=== PATIENT | female | born 1960 | race Caucasian/White ===

== ENCOUNTER 2018-03-12 17:24 | Outpatient (REF) | payer OTHER, SELFPAY ==
--- NOTE | 2018-03-12 15:15 | PAPFT_PTH ---
PATIENT: Madalyn Juan LOC: [facility] U#:[id number] AGE/SX: 57/F ROOM: RE03/12/[address]: Cuong Peralta MD : 1960 BED: DIS: 03/12/2018 SPEC #: [id number] RECD: 03/15/18 12:55 STATUS: YASIR REQ #: [id number] LEEROY: 03/12/18 15:[address]: Cuong Peralta [facility]PT[facility] Cytology RECD BY: Nancy Brown Tissues: 1 - CX/ENDOCX FOR PAP SMEARS Procedures: PAP THIN PREP/UVM Screening HPV DNA PROBE Comments: [id number]
== END 2018-03-12 17:44 ==
LOC: LBN 17:24
PROVIDERS: PCP Family Medicine; Visit Provider Family Medicine
DX: Z12.4 Encounter for screening for malignant neoplasm of cervix (principal); Z11.51 Encounter for screening for human papillomavirus (HPV)
CPT/HCPCS: 88142; 87624

== ENCOUNTER 2018-03-18 01:23 | Outpatient (CLI) | payer OTHER, SELFPAY ==
--- NOTE | 2018-03-18 09:27 | DI.US_ITS ---
SYMPTOM/DIAGNOSIS: POST MENOPAUSAL BLEEDING N95.0 PELVIC ULTRASOUND: Comparison is made with 02 Mar 2013. Transabdominal and transvaginal exams were performed. The uterus measures 7.5 x 3.1 cm and is retroverted. There is an 8 mm anterior fibroid. The endometrial stripe appears thickened measuring 14 mm. There is also increased vascularity and heterogeneity. The left ovary was not visualized. The right ovary is normal in size. There is no free fluid or hydronephrosis. IMPRESSION: Thickened endometrium was also irregular and hypervascular. Biopsy is recommended.
[2018-03-18 09:55] LABS: Abs Immature Grans 0.01 k/cumm (0.0-0.09); Absolute Basophil Count 0.03 k/cumm (0.0-0.2); Absolute Eosinophil Count 0.15 k/cumm (0.0-0.7); Absolute Lymphocyte Count 2.23 k/cumm (1.2-3.4); Absolute Monocyte Count 0.91 k/cumm (0.11-0.7); Absolute Neutrophil Count 3.66 k/cumm (1.2-6.7); Basophils % 0.4; Eosinophils % 2.1; HCT 42.9 % (36.0-46.0); HGB 14.2 g/dL (12.0-15.5); Immature Grans % 0.1; Lymphocytes % 31.9; Mean Corp. HGB Concentration 33.1 g/dL (32.0-36.0); Mean Corpuscular Hemoglobin 31.2 pg (27.0-33.0); Mean Corpuscular Volume 94.3 fL (80-95); Mean Platelet Volume 10.4 fL (8.0-11.0); Neutrophils % 52.5; Platelet Count 230 x1000/uL (130-400); RBC 4.55 m/cumm (4.00-5.20); RBC Distribution Width 12.7 % (11.7-14.6); White Blood Cell Count 6.99 k/cumm (4.4-10.8)
[2018-03-18 11:06] LABS: ALT 23 U/L (12-78); AST 16 U/L (15-37); Albumin 3.7 g/dL (3.4-5.0); Alkaline Phosphatase 69 U/L (46-116); Anion Gap 9.2 mmol/L (3-11); BUN 10 mg/dL (7-18); Bilirubin, Total 0.7 mg/dL (0.2-1.0); CO2 28.8 mmol/L (21.0-32.0); CREATININE 0.77 mg/dL (0.55-1.02); Calcium 9.5 mg/dL (8.5-10.1); Chloride 103 mmol/L (98-107); Cholesterol 227 mg/dL (50-200); Glucose 106 mg/dL (70-100); HDL Cholesterol 63 mg/dL (40-60); LDL CHOLESTEROL 140 mg/dL (<100); Sodium 141 mmol/L (136-145); TSH 1.14 uIU/mL (0.358-3.74); Total Protein 7.6 g/dL (6.4-8.2); Triglyceride 85 mg/dL (30-150)
== END 2018-03-18 01:43 ==
PROVIDERS: PCP Family Medicine; Visit Provider Family Medicine
DX: Z00.00 Encounter for general adult medical examination without abnormal findings (principal); N95.0 Postmenopausal bleeding; R93.89 Abnormal findings on diagnostic imaging of other specified body structures; I10 Essential (primary) hypertension; E78.5 Hyperlipidemia, unspecified
CPT/HCPCS: 36415; 80053; 80061; 83721; 85027; 76830; 76856; 84443; 85025

== ENCOUNTER 2018-03-22 10:24 | Outpatient (CLI) | payer OTHER, SELFPAY ==
[2018-03-22 10:56] LABS: Abs Immature Grans 0.01 k/cumm (0.0-0.09); Absolute Basophil Count 0.06 k/cumm (0.0-0.2); Absolute Eosinophil Count 0.14 k/cumm (0.0-0.7); Absolute Lymphocyte Count 2.18 k/cumm (1.2-3.4); Absolute Monocyte Count 0.98 k/cumm (0.11-0.7); Absolute Neutrophil Count 6.07 k/cumm (1.2-6.7); Basophils % 0.6; Eosinophils % 1.5; HCT 42.2 % (36.0-46.0); HGB 14.4 g/dL (12.0-15.5); Immature Grans % 0.1; Lymphocytes % 23.1; Mean Corp. HGB Concentration 34.1 g/dL (32.0-36.0); Mean Corpuscular Hemoglobin 31.9 pg (27.0-33.0); Mean Corpuscular Volume 93.4 fL (80-95); Mean Platelet Volume 10.4 fL (8.0-11.0); Monocytes % 10.4; Neutrophils % 64.3; Platelet Count 232 x1000/uL (130-400); RBC 4.52 m/cumm (4.00-5.20); RBC Distribution Width 12.5 % (11.7-14.6); White Blood Cell Count 9.44 k/cumm (4.4-10.8)
== END 2018-03-22 10:44 ==
PROVIDERS: PCP Family Medicine; Visit Provider Obstetrics & Gynecology
DX: N95.0 Postmenopausal bleeding (principal)
CPT/HCPCS: 36415; 85025

== ENCOUNTER 2018-03-24 08:29 | Day surgery (SDC) | payer OTHER, SELFPAY ==
[2018-03-24 08:57] VITALS: BP 155/88; PULSE 71; RESP 16; TEMP 36; O2SAT 98
[2018-03-24] MEDS: Lactated Ringers 1,000 ML 100 ML IV (09:24)
[2018-03-24] MEDS: Lidocaine 1% Pres-Free 5 ML VIAL (09:55)
--- NOTE | 2018-03-24 10:06 | ENDOMET_PTH ---
PATIENT: Madalyn Juan LOC: [facility] U#:[id number] AGE/SX: 57/F ROOM: RE03/24/[address]: Andrea Cheatham MD : 1960 BED: DIS: 03/24/2018 SPEC #: [id number] RECD: 03/24/18 12:43 STATUS: YASIR REQ #: [id number] LEEROY: 03/24/18 10:[address]: Andrea Cheatham DEPT: Surgical Specimen RECD BY: Nancy Brown ENTERED: 03/24/18 12:44 SP TYPE: Endomet OTHR DR: Cuong Peralta MD Tissues: 1 - ENDOMETRIUM BX/CURRETTE Procedures: GROSS AND MICRO LEVEL 4 Comments: [id number]
[2018-03-24 11:05] VITALS: BP 139/86; PULSE 67; RESP 20; TEMP 36.2; O2SAT 97
--- NOTE | 2018-03-24 12:09 | W.PM.OP ---
Date of service: 03/24/18 Time of Service: 12:09 Operative Note DATE OF PROCEDURE: 03/24/18 POST-OP DIAGNOSIS: same PROCEDURE: Hysteroscopy, D&C SURGEON: Andrea Cheatham ANESTHESIA: MAC ESTIMATED BLOOD LOSS: 0 PATHOLOGY: other (Endometrial curettings) COMPLICATIONS: None Patient was transported to: PACU Patient's condition: stable Findings: Thickened heterogeneous appearing endometrium with polypoid tissue. Procedure Description: The patient was taken to the operating room and after an adequate level of sedation. The patient was prepped and draped in the usual sterile manner. The bladder was straight cathed for approximately 10 cc of clear urine. A weighted speculum was placed in the vagina with good visualization of the cervix. A single-tooth tenaculum was placed on the anterior lip of the cervix and a paracervical block with 10 cc of 1% plain lidocaine solution was instilled. The cervix was gently dilated with Vargas dilators. A 5 mm 30 degree hysteroscope with normal saline distention media was advanced to the cervix with good visualization of the endometrial cavity. The endometrium was thickened and heterogeneous in appearance. Some structures appeared polypoid. The hysteroscope was removed. A sharp curettage was performed with moderate return of tissue. This was submitted to pathology. A second pass with the hysteroscope was made and complete removal of abnormal appearing tissue was confirmed. All instrument tissue was removed. Excellent hemostasis noted. Sponge, lap and instrument counts were correct at the conclusion of the procedure and the patient was transferred to PACU in stable condition.
== END 2018-03-24 12:35 | disposition home or self-care (01) ==
LOC: SUR 08:29
PROVIDERS: PCP Family Medicine; Visit Provider Obstetrics & Gynecology
PROC: 0UDB8ZZ Extraction of Endometrium, Via Natural or Artificial Opening Endoscopic (ICD-10-PCS; CPT 58558; principal; 2018-03-24 09:00)
DX: C54.1 Malignant neoplasm of endometrium (principal); N95.0 Postmenopausal bleeding
CPT/HCPCS: 58558; 88305; J1100; J1885; J2250; J2405; J3010

== ENCOUNTER 2019-04-01 03:48 | Outpatient (CLI) | payer OTHER, SELFPAY ==
--- NOTE | 2019-04-01 09:45 | DI.RAD_ITS ---
EXAM: XR CHEST 2V PA LATERAL INDICATION: Chronic cough and patient with endometrial cancer,c54.1. COMPARISON: CHEST 2 VIEWS PA,LAT from 09/19/2016 TECHNIQUE: 2D digital imaging was performed. FINDINGS: Heart size appears stable. The pulmonary vasculature are within normal limits. The lungs are clear. No pleural effusion or pneumothorax is identified. Age-appropriate degenerative changes are seen i n the spine. IMPRESSION: No acute pulmonary process.
== END 2019-04-01 04:08 ==
PROVIDERS: PCP Family Medicine; Visit Provider Family Medicine
DX: R05 Cough (principal); C54.1 Malignant neoplasm of endometrium
CPT/HCPCS: 71046

== ENCOUNTER 2019-04-01 09:56 | Outpatient (CLI) | payer OTHER, SELFPAY ==
[2019-04-01 10:58] LABS: Absolute Basophil Count 0.04 k/cumm (0.0-0.2); Absolute Eosinophil Count 0.13 k/cumm (0.0-0.7); Absolute Lymphocyte Count 1.11 k/cumm (1.2-3.4); Absolute Monocyte Count 0.51 k/cumm (0.11-0.7); Absolute Neutrophil Count 2.67 k/cumm (1.2-6.7); Basophils % 0.9; Eosinophils % 2.9; HCT 40.8 % (36.0-46.0); HGB 13.5 g/dL (12.0-15.5); Lymphocytes % 24.9; Mean Corp. HGB Concentration 33.1 g/dL (32.0-36.0); Mean Corpuscular Volume 93.8 fL (80-95); Mean Platelet Volume 9.8 fL (8.0-11.0); Monocytes % 11.4; Neutrophils % 59.9; Platelet Count 266 x1000/uL (130-400); RBC 4.35 m/cumm (4.00-5.20); RBC Distribution Width 12.5 % (11.7-14.6); White Blood Cell Count 4.46 k/cumm (4.4-10.8)
[2019-04-01 11:59] LABS: ALT 22 U/L (14-59); AST 18 U/L (15-37); Albumin 3.7 g/dL (3.4-5.0); Alkaline Phosphatase 83 U/L (46-116); Anion Gap 7.4 mmol/L (3-11); BUN 13 mg/dL (7-18); Bilirubin, Total 0.5 mg/dL (0.2-1.0); CO2 29.6 mmol/L (21.0-32.0); Calcium 9.4 mg/dL (8.5-10.1); Calculated LDL 140 mg/dL (<100); Chloride 106 mmol/L (98-107); Cholesterol 210 mg/dL (<200); Glucose 102 mg/dL (74-106); HDL Cholesterol 60 mg/dL (40-60); Potassium 4.7 mmol/L (3.5-5.1); Sodium 143 mmol/L (136-145); Total Protein 7.1 g/dL (6.4-8.2); Triglyceride 51 mg/dL (<150)
[2019-04-01 12:36] LABS: Hemoglobin A1C 5.7 % (3.8-5.6)
== END 2019-04-01 10:16 ==
PROVIDERS: PCP Family Medicine; Visit Provider Family Medicine
DX: Z00.00 Encounter for general adult medical examination without abnormal findings (principal); E78.5 Hyperlipidemia, unspecified; I10 Essential (primary) hypertension
CPT/HCPCS: 36415; 80053; 80061; 86900; 86901; 83036; 85025

== ENCOUNTER 2019-10-18 15:50 | Outpatient (REF) | payer OTHER, SELFPAY ==
[2019-10-18 15:10] LABS: Calculated LDL 160 mg/dL (<100); Cholesterol 254 mg/dL (<200); HDL Cholesterol 65 mg/dL (40-60); Triglyceride 145 mg/dL (<150)
== END 2019-10-18 16:10 ==
LOC: LBN 15:50
PROVIDERS: PCP Family Medicine; Visit Provider Family Medicine
DX: E78.5 Hyperlipidemia, unspecified (principal); I10 Essential (primary) hypertension
CPT/HCPCS: 80061

== ENCOUNTER 2020-06-26 03:24 | Outpatient (CLI) | payer OTHER, SELFPAY ==
[2020-06-26 12:40] LABS: Calculated LDL 145 mg/dL (<100); Cholesterol 236 mg/dL (<200); HDL Cholesterol 61 mg/dL (40-60); Triglyceride 150 mg/dL (<150)
[2020-06-26 12:44] LABS: Hemoglobin A1C 5.8 % (<5.7)
== END 2020-06-26 03:25 | disposition home or self-care (01) ==
LOC: LOS 03:24
PROVIDERS: PCP Family Medicine; Visit Provider Physician Assistant
DX: E78.5 Hyperlipidemia, unspecified (principal); R73.09 Other abnormal glucose
CPT/HCPCS: 36415; 80061; 83036

== ENCOUNTER 2020-12-21 10:19 | Outpatient (CLI) | payer OTHER, SELFPAY ==
[2020-12-21 13:11] LABS: CREATININE 0.8 mg/dL (0.55-1.02); Calculated LDL 138 mg/dL (<100); Cholesterol 220 mg/dL (<200); HDL Cholesterol 59 mg/dL (40-60); Potassium 4.1 mmol/L (3.5-5.1); Triglyceride 116 mg/dL (<150)
== END 2020-12-21 10:20 | disposition home or self-care (01) ==
LOC: LOS 10:19
PROVIDERS: PCP Nurse Practitioner; Visit Provider Nurse Practitioner
DX: I10 Essential (primary) hypertension (principal); E78.5 Hyperlipidemia, unspecified
CPT/HCPCS: 36415; 80061; 82565; 84132

== ENCOUNTER 2021-07-19 01:12 | Outpatient (CLI) | payer OTHER, SELFPAY ==
[2021-07-19 13:11] LABS: Hemoglobin A1C 6.1 % (<5.7)
[2021-07-19 13:21] LABS: Anion Gap 10.3 mmol/L (3-11); BUN 16 mg/dL (7-18); CO2 32.7 mmol/L (21.0-32.0); CREATININE 0.8 mg/dL (0.55-1.02); Calcium 9.4 mg/dL (8.5-10.1); Calculated LDL 140 mg/dL (<100); Chloride 96 mmol/L (98-107); Cholesterol 218 mg/dL (<200); Glucose 105 mg/dL (74-106); HDL Cholesterol 54 mg/dL (40-60); Potassium 3.1 mmol/L (3.5-5.1); Sodium 139 mmol/L (136-145); Triglyceride 120 mg/dL (<150)
== END 2021-07-19 01:13 | disposition home or self-care (01) ==
LOC: LOS 01:12
PROVIDERS: PCP Nurse Practitioner; Visit Provider Nurse Practitioner
DX: I10 Essential (primary) hypertension (principal); E78.5 Hyperlipidemia, unspecified; R73.03 Prediabetes
CPT/HCPCS: 36415; 80048; 80061; 83036

== ENCOUNTER 2021-08-02 01:41 | Outpatient (CLI) | payer OTHER, SELFPAY ==
[2021-08-02 09:01] LABS: Potassium 2.8 mmol/L (3.5-5.1)
== END 2021-08-02 01:42 | disposition home or self-care (01) ==
LOC: LBO 01:42
PROVIDERS: PCP Nurse Practitioner; Visit Provider Nurse Practitioner
DX: I10 Essential (primary) hypertension (principal)
CPT/HCPCS: 36415; 84132

== ENCOUNTER 2021-08-05 10:09 | Outpatient (CLI) | payer OTHER, SELFPAY ==
[2021-08-05 10:52] LABS: Potassium 3.1 mmol/L (3.5-5.1)
== END 2021-08-05 10:10 | disposition home or self-care (01) ==
LOC: LBO 10:12
PROVIDERS: PCP Nurse Practitioner; Visit Provider Nurse Practitioner
DX: E87.6 Hypokalemia (principal)
CPT/HCPCS: 36415; 84132

== ENCOUNTER 2021-08-30 01:36 | Outpatient (CLI) | payer OTHER, SELFPAY | END 2021-08-30 01:37 | disposition home or self-care (01) | LOC: LBO 01:36 | PROVIDERS: PCP Nurse Practitioner; Visit Provider Nurse Practitioner | DX: E87.6 Hypokalemia (principal) | CPT/HCPCS: 36415; 84132 ==

== ENCOUNTER 2021-09-13 01:54 | Outpatient (CLI) | payer OTHER, SELFPAY ==
[2021-09-13 09:22] LABS: Potassium 2.7 mmol/L (3.5-5.1)
== END 2021-09-13 01:55 | disposition home or self-care (01) ==
LOC: LBO 01:54
PROVIDERS: PCP Nurse Practitioner; Visit Provider Nurse Practitioner
DX: E87.6 Hypokalemia (principal)
CPT/HCPCS: 36415; 84132

== ENCOUNTER 2021-09-16 09:32 | Outpatient (CLI) | payer OTHER, SELFPAY ==
[2021-09-16 10:06] LABS: Potassium 3.3 mmol/L (3.5-5.1)
== END 2021-09-16 09:33 | disposition home or self-care (01) ==
LOC: LBO 09:33
PROVIDERS: PCP Nurse Practitioner; Visit Provider Nurse Practitioner
DX: E87.6 Hypokalemia (principal)
CPT/HCPCS: 36415; 84132

== ENCOUNTER 2021-09-27 01:16 | Outpatient (CLI) | payer OTHER, SELFPAY ==
[2021-09-27 11:40] LABS: Potassium 3.8 mmol/L (3.5-5.1)
== END 2021-09-27 01:17 | disposition home or self-care (01) ==
LOC: LBO 01:16
PROVIDERS: PCP Nurse Practitioner; Visit Provider Nurse Practitioner
DX: E87.6 Hypokalemia (principal)
CPT/HCPCS: 36415; 84132

== ENCOUNTER 2022-01-24 01:38 | Outpatient (CLI) | payer OTHER, SELFPAY ==
[2022-01-24 08:27] LABS: Anion Gap 7.2 mmol/L (3-11); BUN 13 mg/dL (7-18); CO2 29.8 mmol/L (21.0-32.0); CREATININE 0.8 mg/dL (0.55-1.02); Calcium 9.2 mg/dL (8.5-10.1); Chloride 100 mmol/L (98-107); Estimated GFR 84.82 (mL/min/1.73m2); Glucose 115 mg/dL (74-106); Potassium 3.5 mmol/L (3.5-5.1); Sodium 137 mmol/L (136-145)
== END 2022-01-24 01:39 | disposition home or self-care (01) ==
LOC: LBO 01:38
PROVIDERS: PCP Nurse Practitioner Family; Visit Provider Nurse Practitioner Family
DX: E66.9 Obesity, unspecified (principal); E87.6 Hypokalemia; I10 Essential (primary) hypertension
CPT/HCPCS: 36415; 80048

== ENCOUNTER 2022-04-01 07:23 | Emergency (ER) | payer OTHER, SELFPAY ==
[2022-04-01 07:33] VITALS: BP 145/84; PULSE 70; TEMP 36.7; O2SAT 99
--- NOTE | 2022-04-01 09:15 | DI.CT_ITS ---
Exam(s) CT HEAD WO EXAM: CT HEAD WO CLINICAL HISTORY: Head strike okay. TECHNIQUE: Imaging Protocol: Axial computed tomography images with coronal and sagittal reformatted images were created and reviewed COMPARISON: No exams were available for comparison FINDINGS: There are no skull fractures. There is no fluid in the visualized paranasal sinuses. There is no evidence of intracranial hemorrhage, mass effect, or shift of midline structures. There are no extra-axial fluid collections. The ventricles are not enlarged or shifted and there is no blo od within the ventricular system nor within the basal cisterns. IMPRESSION: No acute intracranial findings on this noninfused CT scan of the brain. RADIATION DOSE DELIVERED: 769.8mGy.cm Total DLP DATA REPOSITORY: All CT scans at this facility are submitted to the National Radiology Data Registry (NRDR) Dose Index Registry (DIR) with the [employer] (ACR). RADIATION OPTIMIZATION: All CT scans at this facility use at least one of these dose optimization te chniques: automated exposure control; mA and/or kV adjustment per patient size (includes targeted exa ms where dose is matched to clinical indication); or iterative reconstruction.
--- NOTE | 2022-04-01 09:15 | DI.RAD_ITS ---
Exam(s) XR ELBOW RT COMPLETE EXAM: XR ELBOW RT COMPLETE CLINICAL HISTORY: Right elbow pain. TECHNIQUE: 2D digital imaging was performed. COMPARISON: No exams were available for comparison FINDINGS: 3 views No evidence of acute fracture or joint effusion and there is no swelling of the olecranon bursa. How ever, there osteophytic densities adjacent to the lateral epicondyle. Most probably consistent with epicondylitis. These are corticated and probably within the common extensor tendon. Similar finding s are not seen on the medial aspect of the elbow. No degenerative changes nor loose intra-articular bodies. Radial head and neck are unremarkable. IMPRESSION: Findings at and adjacent to the lateral epicondyle consistent with probable lateral epicondylitis/ten nis elbow. Correlation with site of tenderness recommended. DATA REPOSITORY: RADIATION DOSE DELIVERED:
--- NOTE | 2022-04-01 11:08 | ED.GENADUL_ITS ---
Discharge Plan Disposition Patient Disposition: Home Discharge Details Clinical Impression: Head injury Primary Care Provider: Negin Thompson ED Provider: [facility] Home Meds and New Rx's Prescriptions: Continued fluticasone propionate 50 mcg/actuation spray,suspension 2 spray NS DAILY PRN (Reason: allergy symptoms) Qty: 54.6 3RF meclizine 25 mg tablet 25 mg PO TID Qty: 30 1RF metoprolol tartrate 50 mg tablet 50 mg PO BID Qty: 180 4RF Rx Instructions: 1 TAB BID chlorthalidone 25 mg tablet 25 mg PO DAILY Qty: 90 3RF potassium chloride 20 mEq tablet extended release 20 meq PO DAILY Qty: 90 3RF magnesium oxide 400 mg (241.3 mg magnesium) tablet 400 mg PO DAILY valsartan 320 mg tablet 320 mg PO DAILY Qty: 90 3RF multivitamin [Daily Multi-Vitamin] 1 EACH tablet 1 ea PO DAILY PRN omeprazole 40 mg capsule,delayed release(DR/EC) 40 mg PO HS Qty: 30 11RF acetaminophen 500 mg Tablet 1,000 mg PO Q6H PRN Discharge Instructions Instructions: Head Injury (ED) Additional Instructions: X-ray and CT imaging unremarkable for any obvious emergent process. Over -the-counter Tylenol as directed for discomfort. Cool compresses every 2 hours for 20 minutes. Brain rest until symptoms have resolved. Work note for the rest of the week has been provided. Please watch for new or worsening symptoms and return to the ER for any concerns. Lastly, please contact either your PCP or Workmen's Comp. provider later today or tomorrow to discuss your ER visit and need for reevaluation as an outpatient Stand Alone Forms: Work Release Medical Decision Making 61-year-old female, not anticoagulated, tetanus status up-to-date, presents to the ER after mechanical slip and fall while at work striking the back of her head. Denies LOC but reports headache and left-sided neck pain. She did not realize that she does have a small abrasion to her right elbow as well. Prior to my evaluation, CT brain and right elbow x-ray obtained per protocol. Clinically patient appears well, nontoxic, neurologically intact. CT imaging of brain unremarkable. X-ray reveals no acute fracture or joint effusion. Patient remains neurologically intact. Given her headache, mild nausea, likely mild concussion. Patient requesting a work note for the rest of the week and we discussed brain rest. Standard discharge and return precautions were provided. Patient understands, is agreeable to this plan, and has no additional questions or concerns upon discharge. This documentation was generated using Try[employer] system, please disregard any oddities of phrase or misspellings. Medical Records Medical records reviewed: Yes I reviewed the patient's medical records. Imaging Data Radiologic Study: Attestation: I personally reviewed and interpreted this imaging study as follows: Imaging: X-Ray Radiologist's impression: Exam(s) XR ELBOW RT COMPLETE EXAM: XR ELBOW RT COMPLETE CLINICAL HISTORY: Right elbow pain. TECHNIQUE: 2D digital imaging was performed. COMPARISON: No exams were available for comparison FINDINGS: 3 views No evidence of acute fracture or joint effusion and there is no swelling of the olecranon bursa. However, there osteophytic densities adjacent to the lateral epicondyle. Most probably consistent with epicondylitis. These are corticated and probably within the common extensor tendon. Similar findings are not seen on the medial aspect of the elbow. No degenerative changes nor loose intra-articular bodies. Radial head and neck are unremarkable. IMPRESSION: Findings at and adjacent to the lateral epicondyle consistent with probable lateral epicondylitis/tennis elbow. Correlation with site of tenderness recommended. Radiologic Study #2: Attestation: I personally reviewed and interpreted this imaging study as follows: Imaging: CT Scan Radiologist's impression: Exam(s) CT HEAD WO EXAM: CT HEAD WO CLINICAL HISTORY: Head strike okay. TECHNIQUE: Imaging Protocol: Axial computed tomography images with coronal and sagittal reformatted images were created and reviewed COMPARISON: No exams were available for comparison FINDINGS: There are no skull fractures. There is no fluid in the visualized paranasal sinuses. There is no evidence of intracranial hemorrhage, mass effect, or shift of midline structures. There are no extra-axial fluid collections. The ventricles are not enlarged or shifted and there is no blood within the ventricular system nor within the basal cisterns. IMPRESSION: No acute intracranial findings on this noninfused CT scan of the brain. HPI General Mode of arrival: ambulatory . Date/Time Provider Initiated Documentation: 04/01/22 09:22 . Limitations to Documentation: no limitations . Information obtained by: patient . History of Present Illness 61 year old F presents to the emergency department with the chief complaint of fall/head injury, described as moderate, with intensity rated at 6. Quality is described as aching, and is localized to the head. Patient reports no radiation. Patient started experiencing this hour(s) (3) and it has been constant. No relieving factors improve symptom(s), No exacerbating factors reported . Patient notes nausea/vomiting (nausea) and other (R elbow abrsion). Patient did receive the following treatments prior to arrival, none Related Data Home Medications Medication Instructions Recorded Confirmed multivitamin (Daily Multi-Vitamin 1 ea PO DAILY PRN 06/18/12 04/01/22 tablet) acetaminophen 500 mg tablet 1,000 mg PO Q6H PRN 03/23/18 04/01/22 fluticasone propionate 50 2 spray NS DAILY PRN allergy 03/16/19 04/01/22 mcg/actuation nasal symptoms #54.6 mL spray,suspension magnesium oxide 400 mg (241.3 mg 400 mg PO DAILY 12/21/20 04/01/22 magnesium) tablet omeprazole 40 mg capsule,delayed 40 mg PO HS #30 caps 06/04/21 04/01/22 release meclizine 25 mg tablet 25 mg PO TID #30 tabs 07/12/21 04/01/22 metoprolol tartrate 50 mg tablet 50 mg PO BID #180 tabs 07/12/21 04/01/22 valsartan 320 mg tablet 320 mg PO DAILY #90 tabs 02/14/22 04/01/22 chlorthalidone 25 mg tablet 25 mg PO DAILY #90 tabs 03/17/22 04/01/22 potassium chloride 20 mEq 20 meq PO DAILY #90 tabs 03/17/22 04/01/22 tablet,extended release Previous Rx's Medication Instructions Recorded fluticasone propionate 50 2 spray NS DAILY PRN allergy 03/16/19 mcg/actuation nasal symptoms #54.6 mL spray,suspension omeprazole 40 mg capsule,delayed 40 mg PO HS #30 caps 06/04/21 release meclizine 25 mg tablet 25 mg PO TID #30 tabs 07/12/21 metoprolol tartrate 50 mg tablet 50 mg PO BID #180 tabs 07/12/21 valsartan 320 mg tablet 320 mg PO DAILY #90 tabs 02/14/22 chlorthalidone 25 mg tablet 25 mg PO DAILY #90 tabs 03/17/22 potassium chloride 20 mEq 20 meq PO DAILY #90 tabs 03/17/22 tablet,extended release Allergies Allergy/AdvReac Type Severity Reaction Status Date / Time gluten Allergy Unknown Verified 04/01/22 07:40 codeine AdvReac Severe dizzieness, Verified 04/01/22 07:40 vomitting influenza virus vaccine, AdvReac Severe dizzieness, Verified 04/01/22 07:40 specific nauseated ibuprofen AdvReac Intermediate Abdominal Verified 04/01/22 07:40 pain, nausea, per pt amlodipine AdvReac swelling Verified 04/01/22 07:40 General Stated Complaint: HeadInjury CRISTIAN: 4 Review of Systems Constitutional Constitutional: Denies fatigue, Denies fever(s), Reports headache(s) and Denies weakness Eyes Eyes: Denies change in vision ENT Ears, Nose, Mouth, and Throat: Reports headache(s) and Reports neck pain (Mild left-sided) Cardiovascular Cardiovascular: Denies chest pain and Denies dyspnea Respiratory Respiratory: Denies dyspnea Gastrointestinal Gastrointestinal: Denies abdominal pain, Reports nausea and Denies vomiting Musculoskeletal Musculoskeletal: Reports back pain, Reports neck pain (Mild left-sided), Denies numbness and Denies tingling Integumentary/Breasts Skin/Breast: Denies rash Neurologic Neurologic: Reports headache(s), Denies numbness, Denies tingling and Denies weakness Endocrine Endocrine: Denies fatigue Hematologic/Lymphatic Hematologic/Lymphatic: Denies easy bleeding and Denies easy bruising PFSH All Active Problems (Updated 04/01/22 @ 11:27 by LA Streeter) Head injury (Acute) Obesity (Chronic) Skin lesion (Acute) IBS (irritable bowel syndrome) (Chronic) Hypokalemia (Acute) Prediabetes (Acute) Endometrial adenocarcinoma (Acute) 2020- [facility] 08/2020- Urological lymphocyst compressing urethra removed Essential hypertension (Acute 12/30/12) Gastro-esophageal reflux (Acute 07/22/13) 04/30 [facility] (Dr Tai) EGD neg Hyperlipidemia (Acute) Urge incontinence of urine (Acute) Varicose veins of lower extremity (Acute) h/o superficial phlebitis (Dr Ferraro laser and surgery 2008) Medical History Chest pain (01/15/07) echo-normal; EF 55-60%; stress test-equivocal 10/28/16 echo-normal; EF 55-60% Nevus, non-neoplastic left inner leg; BX-atypia PAC (premature atrial contraction) (02/13/17) Pedal edema chronic R>L Xerosis cutis (02/13/17) Surgical History Cholecystectomy (~07/1986) History of bilateral tubal ligation S/P hysterectomy Spincterotomy vein stripping (~04/2008) Family History Mother Essential hypertension Hyperlipidemia Father , 71 Essential hypertension Heart disease Stroke Alcohol abuse Prostate cancer Sister Asthma Maternal Grandfather , 84 Essential hypertension Heart disease Paternal Grandfather , 75 Essential hypertension Heart disease Neoplasm Stroke Alcohol abuse Maternal Grandmother , 82 Essential hypertension Heart disease Breast cancer Paternal Grandmother , 78 Essential hypertension Heart disease Hyperlipidemia Stroke Son Substance abuse Depression Mental disorder Depression Daughter No problems noted. Brother , age 19 No problems noted. Social History Smoking/Tobacco Use Status: Never Smoking risk assessment performed?: Yes Alcohol Intake: never Drug use: Never Substance use type: does not use Caregiver/Support person: No Household members: spouse Housing: house Communication Needs: None Do you need help understanding health information?: Never Pets and animals: Yes (2 beagle pups) Pets and animals: dog(s) Sexually active: No Do you think of yourself as: straight/heterosexual Current gender identity: female What is your relationship status?: How often do you talk on the phone with friends or family?: twice per week How often do you get together with friends or relatives?: once per week How often do you attend sikhism or spiritism services?: 1-3 times per year Do you belong to any clubs or organized social groups?: no Panel score (0-1 are the most socially isolated patients): 2 What type of physical activity do you participate in: walking and other Details: Treadmill Duration: 15-30 minutes/day Frequency: 3-4 times per week Kae/Methodist: Buddhism Special kae needs: No Seatbelt use: always Drive intox or ride w/intox rickshaw driver: No Female Reproductive History Menstrual control method: permanent sterilization History History 4 Para 2 Hx # Term Pregnancies Multiple births Hx # Pregnancies Ectopic pregnancies AB induced Hx Number of Living Children 2 AB spontaneous 2 Exam Const General: cooperative, healthy appearing, comfortable and no acute distress Orientation: alert, awake and oriented x3 HENMT Head: normal to inspection, no palpable skull fracture and normocephalic Head images: 1. Tenderness, no crepitus or swelling. No ecchymosis. Skin intact. Ears: external ears normal, TM's normal bilaterally and EAC's normal General nose exam: external nose normal Face and sinus: normal facial exam Mouth: moist mucous membranes Throat: posterior oropharynx normal Eyes General: appearance normal, both eyes and all related structures Alignment and Position: alignment normal Periorbital: periorbital findings normal Eyelids: eyelids normal Conjunctivae: conjunctivae normal Sclera: sclerae normal Cornea: corneas normal Pupils: PERRL EOM: EOM intact bilaterally Direct ophthalmoscopy: normal light reflex Neck Neck: normal visual inspection, full ROM, no meningeal signs, trachea midline, supple and tender (Mild left paravertebral and SCM. No midline point tenderness) Resp Effort & Inspection: normal respiratory effort and able to speak in complete sentences Auscultation: clear to auscultation bilaterally Cardio Rate: regular rate Rhythm: regular rhythm GI Palpation: soft and nontender Back/Spine/Pelvis Back: no CVA tenderness and back tenderness (Diffuse mild lumbar, no ecchymosis or midline point tenderness) Skin General skin exam: no rashes or lesions noted Neuro General: patient alert, patient awake, patient oriented x3, moves all ex tremities and no focal motor deficits Cranial Nerves: CN's II-XI intact bilaterally Cognition: normal cognition Speech: speech normal Gait: normal gait Motor: muscle tone normal throughout Sensory Exam: no sensory deficits noted Extrem General: full ROM and capillary refill normal Elbow/forearm/wrist images: 1. Abrasion Psych Appearance: grossly normal Mental Status: mental status grossly normal Course Vital Signs Vital signs: Vital Signs Temperature 36.7 C 04/01/22 07:33 Pulse 70 04/01/22 07:33 Blood Pressure 145/84 H 04/01/22 07:33 Pulse Oximetry 99 04/01/22 07:33 Temperature 36.7 C 04/01/22 07:33 Temperature Source Tympanic 04/01/22 07:33 Pulse 70 04/01/22 07:33 Respiratory Effort Normal 04/01/22 07:44 Respiratory Depth Normal 04/01/22 07:44 Respiratory Pattern Normal 04/01/22 07:44 Blood Pressure 145/84 H 04/01/22 07:33 Blood Pressure Position Sitting 04/01/22 07:33 Pulse Oximetry 99 04/01/22 07:33 Oxygen Delivery Method Room Air 04/01/22 07:33 Oxygen Flow Rate 0 04/01/22 07:33 Pain Level 4 04/01/22 07:44
[2022-04-01 11:39] VITALS: BP 122/74; PULSE 72; RESP 18; O2SAT 97
== END 2022-04-01 11:39 | disposition home or self-care (01) ==
PROVIDERS: Emergency Provider Physician Assistant; PCP Nurse Practitioner Family
DX: S09.90XA Unspecified injury of head, initial encounter (principal); S50.311A Abrasion of right elbow, initial encounter; I10 Essential (primary) hypertension; W01.0XXA Fall on same level from slipping, tripping and stumbling without subsequent striking against object, initial encounter; Y99.0 Civilian activity done for income or pay
CPT/HCPCS: 99284; 70450; 73080; 99282

== ENCOUNTER 2022-09-09 09:15 | Outpatient (CLI) | payer OTHER, SELFPAY ==
[2022-09-09 12:34] LABS: HCT 42.1 % (36.0-46.0); MCH 31.3 pg (27.0-33.0); MCHC 33.3 % (32.0-36.0); MCV 94 fL (80-95); MPV 10.2 fL (8.0-11.0); Platelet Count 278 10^3/uL (130-400); RBC 4.47 10^6/uL (3.93-5.22); RDW 12.3 % (11.7-14.6); RDW-SD 42.7 fL; WBC 6.37 10^3/uL (4.4-10.8)
[2022-09-09 12:58] LABS: Hemoglobin A1C 5.7 % (<5.7)
[2022-09-09 13:07] LABS: Anion Gap 6.1 mmol/L (3-11); BUN 17 mg/dL (7-18); CO2 32.9 mmol/L (21.0-32.0); CREATININE 0.9 mg/dL (0.55-1.02); Calcium 9.6 mg/dL (8.5-10.1); Calculated LDL 127 mg/dL (<100); Chloride 100 mmol/L (98-107); Cholesterol 211 mg/dL (<200); Estimated GFR 73.19 (mL/min/1.73m2); Glucose 109 mg/dL (74-106); HDL Cholesterol 61 mg/dL (40-60); Potassium 3.6 mmol/L (3.5-5.1); Sodium 139 mmol/L (136-145); Triglyceride 116 mg/dL (<150)
== END 2022-09-09 09:16 | disposition home or self-care (01) ==
LOC: LOS 09:16
PROVIDERS: PCP Nurse Practitioner Family; Referring Provider Nurse Practitioner Family; Visit Provider Nurse Practitioner Family
DX: E87.6 Hypokalemia; I10 Essential (primary) hypertension; K21.9 Gastro-esophageal reflux disease without esophagitis; R05.9 Cough, unspecified; R73.03 Prediabetes
CPT/HCPCS: 36415; 80048; 80061; 85027; 83036

== ENCOUNTER 2023-09-14 09:08 | Outpatient (CLI) | payer OTHER, SELFPAY ==
[2023-09-14 13:57] LABS: Anion Gap 6.4 mmol/L (3-11); BUN 16 mg/dL (7-18); CO2 33.6 mmol/L (21.0-32.0); CREATININE 0.9 mg/dL (0.55-1.02); Calcium 9.9 mg/dL (8.5-10.1); Calculated LDL 133 mg/dL (<100); Chloride 100 mmol/L (98-107); Cholesterol 223 mg/dL (<200); Estimated GFR 72.73 (mL/min/1.73m2); Glucose 107 mg/dL (74-106); HDL Cholesterol 65 mg/dL (40-60); Potassium 4.4 mmol/L (3.5-5.1); Sodium 140 mmol/L (136-145); Triglyceride 128 mg/dL (<150)
[2023-09-14 14:04] LABS: Hemoglobin A1C 5.9 % (<5.7)
== END 2023-09-14 09:09 | disposition home or self-care (01) ==
LOC: LOS 09:09
PROVIDERS: PCP Nurse Practitioner Family; Referring Provider Nurse Practitioner Family; Visit Provider Nurse Practitioner Family
DX: I10 Essential (primary) hypertension (principal); E78.5 Hyperlipidemia, unspecified; R73.03 Prediabetes; E04.1 Nontoxic single thyroid nodule
CPT/HCPCS: 36415; 80048; 80061; 83036

== ENCOUNTER 2024-09-27 09:28 | Outpatient (CLI) | payer BC, SELFPAY ==
[2024-09-27 13:37] LABS: ALT 27 U/L (14-59); AST 19 U/L (15-37); Albumin 3.9 g/dL (3.4-5.0); Alkaline Phosphatase 70 U/L (46-116); Anion Gap 4.4 mmol/L (3-11); BUN 15 mg/dL (7-18); Bilirubin, Total 0.6 mg/dL (0.2-1.0); CO2 33.6 mmol/L (21.0-32.0); Calcium 9.6 mg/dL (8.5-10.1); Calculated LDL 106 mg/dL (<100); Chloride 100 mmol/L (98-107); Cholesterol 194 mg/dL (<200); Estimated GFR 97.72 (mL/min/1.73m2); Glucose 103 mg/dL (74-106); HDL Cholesterol 67 mg/dL (>or=50); Potassium 3.7 mmol/L (3.5-5.1); Sodium 138 mmol/L (136-145); TSH (W/Ref FT4) 2.55 uIU/mL (0.36-3.74); Total Protein 7.8 g/dL (6.4-8.2); Triglyceride 108 mg/dL (<150)
[2024-09-27 13:56] LABS: Hemoglobin A1C 5.7 % (<5.7)
== END 2024-09-27 09:29 | disposition home or self-care (01) ==
LOC: LOS 09:28
PROVIDERS: PCP Nurse Practitioner Family; Visit Provider Nurse Practitioner Family
DX: Z00.00 Encounter for general adult medical examination without abnormal findings (principal); I10 Essential (primary) hypertension; E78.5 Hyperlipidemia, unspecified; R73.03 Prediabetes; E04.1 Nontoxic single thyroid nodule; K21.9 Gastro-esophageal reflux disease without esophagitis; K58.9 Irritable bowel syndrome, unspecified; C54.1 Malignant neoplasm of endometrium
CPT/HCPCS: 36415; 80053; 80061; 83036; 84443